=== PATIENT | female | born 1985 | race Caucasian/White ===

== ENCOUNTER 2017-06-30 11:15 | Emergency (ER) | payer SELFPAY ==
[2017-06-30 11:40] VITALS: BMI 27.4
[2017-06-30 11:44] VITALS: O2SAT 100
[2017-06-30] MEDS ORDERED: Sodium Chloride 0.9% 1,000 ML IV STA (12:55)
--- NOTE | 2017-06-30 12:59 | ED PDOC ---
Arrival/HPI - General Chief Complaint: Headache Time Seen by Provider: 06/30/17 12:12 Historian: Patient, Parent - History of Present Illness Narrative History of Present Illness (Text): you were treated in the ED today for history of migraine headaches without being on medication, and you clarified having sinus/cold type symptoms a few days prior then gradual onset throbbing headache with nausea, light sensitivity with mild back of head/neck pain for 1 day pluse but otherwise without any loss of consciousness/vomiting/dizziness/difficulty breathing/chest pain/abdomen pain /numbness/tingling/loss of limb function/pain with urination. 06/30/17 12:56 06/30/17 14:48 Time/Duration: Other (2 days) Symptom Onset: Gradual Symptom Course: Unchanged Quality: Aching Severity Level: 6 Activities at Onset: Rest Context: Sitting Past Medical History - Provider Review Nursing Documentation Reviewed: Yes - Travel History Have you recently traveled outside [place] w/in the past 3 mons?: No - Infectious Disease Hx of Infectious Diseases: None - Cardiac Hx Cardiac Disorders: No - Pulmonary Hx Respiratory Disorders: No - Neurological Hx Migraine: Yes - HEENT Hx HEENT Disorder: No - Renal Hx Renal Disorder: No - Endocrine/Metabolic Hx Endocrine Disorders: No - Hematological/Oncological Hx Blood Disorders: No - Integumentary Hx Dermatological Disorder: No - Musculoskeletal/Rheumatological Hx Musculoskeletal Disorders: No - Gastrointestinal Hx Gastrointestinal Disorders: No - Genitourinary/Gynecological Hx Genitourinary Disorders: No - Psychiatric Hx Depression: No Hx Emotional Abuse: No Hx Physical Abuse: No Hx Substance Use: No - Past Surgical History Past Surgical History: No Previous - Surgical History Hx Section: Yes (x1) - Anesthesia Hx Anesthesia: Yes Hx Anesthesia Reactions: No Hx Malignant Hyperthermia: No - Suicidal Assessment Feels Threatened In Home Enviroment: No Family/Social History - Physician Review Nursing Documentation Reviewed: Yes Family/Social History: No Known Family HX Smoking Status: Never Smoked Hx Alcohol Use: No Hx Substance Use: No Hx Substance Use Treatment: No Allergies/Home Meds Allergies/Adverse Reactions: Allergies No Known Allergies Allergy (Verified 06/16/14 12:50) Review of Systems - Review of Systems Systems not reviewed;Unavailable: Acuity of Condition Constitutional: Normal Eyes: Photophobia ENT: Normal Respiratory: Normal Cardiovascular: Normal Gastrointestinal: Nausea Genitourinary Female: Normal Musculoskeletal: Neck Pain Skin: Normal Neurological: Headache Endocrine: Normal Hemo/Lymphatic: Normal Psychiatric: Normal Physical Exam Vital Signs Reviewed: Yes Vital Signs Temp Pulse Resp BP Pulse Ox 06/30/17 11:43 98.9 F 85 18 104/57 L 100 Temperature: Afebrile Blood Pressure: Normal Pulse: Regular Respiratory Rate: Normal Appearance: Positive for: Well-Appearing, Non-Toxic, Comfortable Pain Distress: None Mental Status: Positive for: Alert and Oriented X 3 - Systems Exam Head: Present: Atraumatic, Normocephalic Pupils: Present: PERRL Extroacular Muscles: Present: EOMI Conjunctiva: Present: Normal Ears: Present: Normal Mouth: Present: Moist Mucous Membranes Pharnyx: Present: Normal Nose (External): Present: Atraumatic Nose (Internal): Present: Normal Inspection Neck: Present: Normal Range of Motion, Other (soft, no pain with bend in knees) . No: Meningeal Signs, MIDLINE TENDERNESS, Paraspinal Tenderness, JVD, Lymphadenopathy, Bruit, Trachea Midline Respiratory/Chest: Present: Clear to Auscultation Cardiovascular: Present: Regular Rate and Rhythm Abdomen: No: Tenderness, Distention, Normal Bowel Sounds, Peritoneal Signs, Rebound, Guarding, McBurney's Point Tender, Rovsing's Sign Present, Hernias, Feeding Tubes, Ostomy Tubes, Mass/Organomegaly, Scars, Other Back: Present: Normal Inspection Upper Extremity: Present: Normal Inspection Lower Extremity: Present: Normal Inspection Neurological: Present: GCS=15, CN II-XII Intact, Speech Normal, Motor Func Grossly Intact Skin: Present: Warm, Normal Color Psychiatric: Present: Alert, Oriented x 3, Normal Insight, Normal Concentration Medical Decision Making ED Course and Treatment: you were treated in the ED today for history of migraine headaches without being on medication, and you clarified having sinus/cold type symptoms a few days prior then gradual onset throbbing headache with nausea, light sensitivity with mild back of head/neck pain for 1 day pluse but otherwise without any loss of consciousness/vomiting/dizziness/difficulty breathing/chest pain/abdomen pain /numbness/tingling/loss of limb function/pain with urination. You were otherwise breathing easily, pink lips, talking easily with your mother in law, good strength/sensation, alert/oriented, walking easily, clear lungs, no abdomen tenderness, soft neck without tenderness to touch and no pain with bending your knees, but with sinus congestion and pressure, no fever temp 98.9, stable heart rate 85_, stable breathing rate _18, excellent oxygen level 100% room air, elevated blood pressure 104/57_ which we recommend repeat in 2-3 days primary care office to determine further treatment, you have blood tests no infection count 7.8, stable blood level hemoglobin_12/platelets_276, stable chemistry sodium 140, potassium 4.4, bicarbonate_24, chloride 106, bun_14, creatinine_0.6, glucose 88_, liver AST/ALT__/__, urine test negative, radiology CT head without acute acute inside your head abnormality but with fluid in the right maxillary sinus with aerosolized secretions and severe polypoid mucosal thickening in the left maxillary sinus. There are also aerosolized secretions in the right sphenoid chamber and fluid in the right posterior ethmoid air cell with scattered mucosal thickening in the ethmoid air cells; intravenous fluids, tylenol and zofran anti-nausea done in the ED with improvement of the headache, had a long discussion and recommended lumbar puncture but you refused and cautioned for complications/ but you stated wanted to do treatment for sinus infection at this time and thus discharged home with [id number] with sinus infection. 1. Recommend augmentin as directed for sinus infection control. 2. Recommend humidified air daily for nasal passage opening. 3. Recommend follow-up primary care 1-2 days to review symptoms, referral to ear nose throat clinic. 4. If any worsening pain, fever, chills, nausea, vomiting, difficulty breathing, numbness, loss of limb function , pain with urination or any medical condition then return to the ED. 06/30/17 14:20 CT Head: Creator : Julee Burr MD COMPARISON: 06/16/2014. FINDINGS: HEMORRHAGE:No intracranial hemorrhage. BRAIN: Hurt-white matter differentiation is preserved. There is no mass, mass effect or abnormal extra-axial fluid collection. VENTRICLES:The ventricles are normal in size, shape and configuration. CALVARIUM:The skull base and calvarium are normal. PARANASAL SINUSES:There is fluid in the right maxillary sinus with aerosolized secretions and severe polypoid mucosal thickening in the left maxillary sinus. There are also aerosolized secretions in the right sphenoid chamber and fluid in the right posterior ethmoid air cell with scattered mucosal thickening in the ethmoid air cells. MASTOID AIR CELLS:Predominantly clear. OTHER FINDINGS:None. IMPRESSION: 1. No acute intracranial abnormality. 2. Findings are concerning for acute maxillary, right posterior ethmoid and right sphenoid sinusitis. 06/30/17 14:35 06/30/17 14:37 06/30/17 14:43 06/30/17 14:47 - Lab Interpretations Lab Results: 06/30/17 13:10 06/30/17 13:10 Lab Results 06/30/17 13:10: Sodium 140, Potassium 4.4, Chloride 106, Carbon Dioxide 24, Anion Gap 15, BUN 14, Creatinine 0.6 L, Est GFR ( Amer) > 60, Est GFR ( Non-Af Amer) > 60, Random Glucose 88, Calcium 9.6, Total Bilirubin 0.4, AST 21, ALT 27, Alkaline Phosphatase 72, Total Protein 7.3, Albumin 4.1, Globulin 3.2, Albumin/Globulin Ratio 1.3 06/30/17 13:10: PT 12.0, INR 1.05, APTT 32.0 06/30/17 13:10: WBC 7.8 D, RBC 4.43, Hgb 12.0, Hct 39.1, MCV 88.3, MCH 27.1, MCHC 30.7 L, RDW 13.5, Plt Count 276, MPV 10.8, Gran % 83.4 H, Lymph % (Auto) 12.7 L, [place] % (Auto) 3.3, Eos % (Auto) 0.3 L, Baso % (Auto) 0.3, Gran # 6.48, Lymph # 1.0 L, [place] # 0.3, Eos # 0.0, Baso # 0.02 I have reviewed the lab results: Yes - RAD Interpretation Radiology Orders: 06/30/17 12:54 HEAD W/O CONTRAST [CT] Stat - Medication Orders Current Medication Orders: Discontinued Medications Acetaminophen (Tylenol 325mg Tab) 975 mg PO STAT STA Stop: 06/30/17 12:56 Last Admin: 06/30/17 13:30 Dose: 975 mg MAR Pain/Vitals Document 06/30/17 13:30 MS (Rec: 06/30/17 13:31 MS [id number]) Pain Reassessment Is This A Pain ReAssessment? No Sleep Is patient sleeping during reassessment? No Presence of Pain Presence of Pain Yes Pain Scale Used Pain Scale Used Numeric Location Pain Location Body School Administrator Description Intermittent Pressure Intensity 7 Scale Used Numeric Pain Behavior Irritability Sodium Chloride (Sodium Chloride 0.9%) 1,000 mls @ 999 mls/hr IV .Q1H1M STA Stop: 06/30/17 13:55 Last Admin: 06/30/17 13:29 Dose: 999 mls/hr eMAR Start Stop Document 06/30/17 13:29 MS (Rec: 06/30/17 13:30 MS [id number]) Intravenous Solution Start Date 06/30/17 Start Time 13:30 End Date 06/30/17 End time 14:30 Total Infusion Time 60 Ondansetron HCl (Zofran Inj) 4 mg IVP STAT STA Stop: 06/30/17 12:56 Last Admin: 06/30/17 13:31 Dose: 4 mg IVP Administration Document 06/30/17 13:31 MS (Rec: 06/30/17 13:31 MS [id number]) Charges for Administration # of IVP Administrations 1 - Scribe Statement The provider has reviewed the documentation as recorded by the Ceciibe Miley Kong Provider Scribe Attestation: All medical record entries made by the Scribe were at my direction and personally dictated by me. I have reviewed the chart and agree that the record accurately reflects my personal performance of the history, physical exam, medical decision making, and the department course for this patient. I have also personally directed, reviewed, and agree with the discharge instructions and disposition. Disposition/Present on Arrival - Present on Arrival Any Indicators Present on Arrival: No History of DVT/PE: No History of Uncontrolled Diabetes: No Urinary Catheter: No History of Decub. Ulcer: No History Surgical Site Infection Following: None - Disposition Have Diagnosis and Disposition been Completed?: Yes Diagnosis: Headache, Nausea, Sinusitis, acute Disposition: HOME/ ROUTINE Disposition Time: 14:44 Patient Plan: Discharge Patient Problems: Current Active Problems Problem Status Onset Headache Acute Nausea Acute Sinusitis, acute Acute Condition: IMPROVED Additional Instructions: you were treated in the ED today for history of migraine headaches without being on medication, and you clarified having sinus/cold type symptoms a few days prior then gradual onset throbbing headache with nausea, light sensitivity with mild back of head/neck pain for 1 day pluse but otherwise without any loss of consciousness/vomiting/dizziness/difficulty breathing/chest pain/abdomen pain /numbness/tingling/loss of limb function/pain with urination. You were otherwise breathing easily, pink lips, talking easily with your mother in law, good strength/sensation, alert/oriented, walking easily, clear lungs, no abdomen tenderness, soft neck without tenderness to touch and no pain with bending your knees, but with sinus congestion and pressure, no fever temp 98.9, stable heart rate 85_, stable breathing rate _18, excellent oxygen level 100% room air, elevated blood pressure 104/57_ which we recommend repeat in 2-3 days primary care office to determine further treatment, you have blood tests no infection count 7.8, stable blood level hemoglobin_12/platelets_276, stable chemistry sodium 140, potassium 4.4, bicarbonate_24, chloride 106, bun_14, creatinine_0.6, glucose 88_, liver AST/ALT__21/27__, urine test negative, radiology CT head without acute acute inside your head abnormality but with fluid in the right maxillary sinus with aerosolized secretions and severe polypoid mucosal thickening in the left maxillary sinus. There are also aerosolized secretions in the right sphenoid chamber and fluid in the right posterior ethmoid air cell with scattered mucosal thickening in the ethmoid air cells; intravenous fluids, tylenol and zofran anti-nausea done in the ED with improvement of the headache, had a long discussion and recommended lumbar puncture but you refused and cautioned for complications/ but you stated wanted to do treatment for sinus infection at this time and thus discharged home with [id number] with sinus infection. 1. Recommend augmentin as directed for sinus infection control. 2. Recommend humidified air daily for nasal passage opening. 3. Recommend follow-up primary care 1-2 days to review symptoms, referral to ear nose throat clinic. 4. If any worsening pain, fever, chills, nausea, vomiting, difficulty breathing, numbness, loss of limb function , pain with urination or any medical condition then return to the ED. Prescriptions: Acetaminophen [Tylenol 325mg tab] 650 mg PO Q6 PRN 10 Days #20 tab PRN Reason: Pain, Mild (1-3) Amoxicillin/Clavulanate [Augmentin 875 MG-125 MG] 1 tab PO Q12 10 Days #20 tab Forms: [facility] (Khmer), WORK NOTE
[2017-06-30 13:26] LABS: BASO # 0.02 K/mm3 (0.0-2.0); BASO % 0.3 % (0.0-3.0); EOS % 0.3 % (1.5-5.0); GRAN # 6.48 (1.4-6.5); GRAN % 83.4 % (50.0-68.0); LYMPH % 12.7 % (22.0-35.0); MEAN CELL VOLUME 88.3 fl (80.0-105.0); MEAN CORPUSCULAR HEMOGLOBIN 27.1 pg (25.0-35.0); MEAN CORPUSCULAR HGB CONC 30.7 g/dl (31.0-37.0); MEAN PLATELET VOLUME 10.8 fl (7.0-11.0); MONO # 0.3 (0.1-0.6); MONO % 3.3 % (1.0-6.0); RBC 4.43 10^6/uL (3.5-6.1); RED CELL DISTRIBUTION WIDTH 13.5 % (11.5-14.5); WHITE BLOOD COUNT 7.8 10^3/ul (4.5-11.0)
[2017-06-30 13:30] LABS: INR 1.05 (0.93-1.08)
[2017-06-30 13:52] LABS: ALB/GLOB RATIO 1.3 (1.1-1.8); ALBUMIN 4.1 g/dL (3.0-4.8); ALT/SGPT 27 U/L (7-56); AST/SGOT 21 U/L (14-36); BLOOD UREA NITROGEN 14 mg/dL (7-21); CALCIUM 9.6 mg/dL (8.4-10.5); GFR AFRICAN-AMERICAN > 60; GFR NON-AFRICAN AMERICAN > 60
--- NOTE | 2017-06-30 13:53 | CT ---
PROCEDURE: CT HEAD WITHOUT CONTRAST. HISTORY: Headache COMPARISON: 06/16/2014. TECHNIQUE: Axial computed tomography images were obtained through the head/brain without intravenous contrast. Radiation dose: Total exam DLP = 935.99 mGy-cm. This CT exam was performed using one or more of the following dose reduction techniques: Automated exposure control, adjustment of the mA and/or kV according to patient size, and/or use of iterative reconstruction technique. FINDINGS: HEMORRHAGE: No intracranial hemorrhage. BRAIN: Hurt-white matter differentiation is preserved. There is no mass, mass effect or abnormal extra-axial fluid collection. VENTRICLES: The ventricles are normal in size, shape and configuration. CALVARIUM: The skull base and calvarium are normal. PARANASAL SINUSES: There is fluid in the right maxillary sinus with aerosolized secretions and severe polypoid mucosal thickening in the left maxillary sinus. There are also aerosolized secretions in the right sphenoid chamber and fluid in the right posterior ethmoid air cell with scattered mucosal thickening in the ethmoid air cells. MASTOID AIR CELLS: Predominantly clear. OTHER FINDINGS: None. IMPRESSION: 1. No acute intracranial abnormality. 2. Findings are concerning for acute maxillary, right posterior ethmoid and right sphenoid sinusitis.
[2017-06-30] MEDS ORDERED: Amoxicillin-Clav 875-125 mg Tab PO STA (14:43)
[2017-06-30 15:12] VITALS: BP 102/76; PULSE 66; RESP 16; TEMP 98.1
== END 2017-06-30 15:36 | disposition home or self-care (01) ==
LOC: ED 11:15
DX: J01.90 Acute sinusitis, unspecified (principal); R51 Headache; R11.0 Nausea
CPT/HCPCS: 70450; 80053; 85025; 85610; 85730; 96361; 96374; 99285; J2405; J7040